=== PATIENT | female | born 1990 | race Asian ===

== ENCOUNTER 2018-06-03 15:47 | Emergency (ER) | payer OTHER ==
[2018-06-03] MEDS ORDERED: DIPHTH,PERTUSS(ACELL),TET 0.5 ML DISP.SYRIN IM ONE (15:50)
--- NOTE | 2018-06-03 15:50 | PDOC ---
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
[2018-06-03 15:51] VITALS: BP 136/71; PULSE 92; TEMP 98.1; BMI 40.2
--- NOTE | 2018-06-03 16:13 | PDOC ---
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 Past History - Past Medical History Allergies/Adverse Reactions: Allergies Allergy/AdvReac Type Severity Reaction Status Date / Time No Known Allergies Allergy Verified 06/03/18 15:51 Home Medications: Ambulatory Orders NK [No Known Home Medication] 07/01/15 COPD: No Thyroid Disease: Yes - Suicide/Smoking/Psychosocial Hx Smoking History: Never smoked Information on smoking cessation initiated: No Hx Alcohol Use: No Drug/Substance Use Hx: No Substance Use Type: None Review of Systems - Review of Systems Integumentary: Yes: See HPI *Physical Exam - Vital Signs Last Vital Signs Temp Pulse Resp BP Pulse Ox 98.1 F 92 H 18 136/71 100 06/03/18 15:49 06/03/18 15:49 06/03/18 15:49 06/03/18 15:49 06/03/18 15:49 - Physical Exam Comments: 06/03/18 16:11 There is a subcentimeter superficial laceration on the ulnar aspect of the right hand about the hyperthenar eminence this wound does not require sutures. There are no gross sensorimotor deficits in the hand flexor and extended tendon functions are all well preserved neurovascularly intact Medical Decision Making - Medical Decision Making 06/03/18 16:12 Recommend local wound care with soap and water cover with a dry sterile dressing May leave open to air while at home *DC/Admit/Observation/Transfer Diagnosis at time of Disposition: Hand laceration - Discharge Dispostion Disposition: HOME Condition at time of disposition: Stable Decision to Admit order: No - Referrals Referrals: Judy Burrell MD [Primary Care Provider] - Porter Pederson MD [Staff Physician] - - Patient Instructions Additional Instructions: He may wash the hand with soap and water and cover it with a dry sterile dressing such as a Band-Aid. Return to the emergency room should there be any drainage swelling or redness around the area of the wound. Tetanus was updated today. He had the option to follow-up with hand surgery should you feel you require further treatment. You may also return to the emergency room at any time - Post Discharge Activity
== END 2018-06-03 16:17 | disposition home or self-care (01) ==
LOC: JERFT 15:47
PROC: 3E0234Z Introduction of Serum, Toxoid and Vaccine into Muscle, Percutaneous Approach (ICD-10-PCS; principal; 2018-06-03)
DX: S61.411A Laceration without foreign body of right hand, initial encounter (principal); W26.0XXA Contact with knife, initial encounter; Y93.G1 Activity, food preparation and clean up; Y92.89 Other specified places as the place of occurrence of the external cause; Y99.0 Civilian activity done for income or pay; E07.9 Disorder of thyroid, unspecified
CPT/HCPCS: 90715; 99282-25

== ENCOUNTER 2018-06-19 13:18 | Emergency (ER) | payer OTHER ==
[2018-06-19 13:33] VITALS: BP 139/79; PULSE 88; TEMP 98.3; BMI 40.3
[2018-06-19] MEDS ORDERED: KETOROLAC TROMETHAMINE 60 MG/2 ML VIAL IM ONE (14:03)
[2018-06-19] MEDS ORDERED: CYCLOBENZAPRINE HCL 10 MG TABLET (FP) PO ONE (14:03)
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
[2018-06-19] MEDS ORDERED: CYCLOBENZAPRINE HCL 10 MG TABLET (FP) ONE (14:12)
[2018-06-19] MEDS ORDERED: KETOROLAC TROMETHAMINE 60 MG/2 ML VIAL ONE (14:12)
== END 2018-06-19 15:57 | disposition home or self-care (01) ==
LOC: JERFT 13:18
PROC: 3E0233Z Introduction of Anti-inflammatory into Muscle, Percutaneous Approach (ICD-10-PCS; principal; 2018-06-19)
DX: S16.1XXA Strain of muscle, fascia and tendon at neck level, initial encounter (principal); V43.52XA Car driver injured in collision with other type car in traffic accident, initial encounter; Y93.89 Activity, other specified; Y92.410 Unspecified street and highway as the place of occurrence of the external cause; E07.9 Disorder of thyroid, unspecified
CPT/HCPCS: 72050-TC-FY; 84703; 99281-25

== ENCOUNTER 2019-02-21 11:09 | Emergency (ER) | payer OTHER ==
[2019-02-21 11:19] VITALS: BP 114/74; PULSE 74; TEMP 98.2; BMI 40.0
--- NOTE | 2019-02-21 11:27 | PDOC ---
History of Present Illness - General Chief Complaint: Eye Problem Stated Complaint: LT EYE PAIN Time Seen by Provider: 02/21/19 11:20 History Source: Patient Exam Limitations: Clinical Condition - History of Present Illness Initial Comments: 02/21/19 11:43 Patient with no significant past medical history present with complaint of redness and pain in left eye upon wake this morning. Patient report some mild blurred vision upon wake. Patient wears corrective lenses. Denies contact lens use. Denies nausea, vomiting, dizziness but report mild photophobia. Denies any other symptoms Timing/Duration: 4-6 hours Past History - Past Medical History Allergies/Adverse Reactions: Allergies Allergy/AdvReac Type Severity Reaction Status Date / Time No Known Allergies Allergy Verified 02/21/19 11:19 Home Medications: Ambulatory Orders Ofloxacin 0.3% Ophth Soln [Ocuflox -] 2 drop OS Q6H 5 Days #1 bottle 02/21/19 COPD: No Thyroid Disease: Yes - Suicide/Smoking/Psychosocial Hx Smoking History: Never smoked Hx Alcohol Use: No Drug/Substance Use Hx: No Substance Use Type: None Review of Systems - Review of Systems Able to Perform ROS?: Yes Is the patient limited Vietnamese proficient: No Constitutional: No: Chills, Fever, Malaise HEENTM: Yes: Symptoms Reported, See HPI, Eye Pain (left eye). No: Blurred Vision, Tearing, Recent change in vision, Double Vision, Cataracts, Ear Pain, Ocular Prothesis, Ear Discharge, Nose Pain, Nose Congestion, Tinnitus, Nose Bleeding, Hearing Loss, Throat Pain, Throat Swelling, Mouth Pain, Dental Problems, Difficulty Swallowing, Mouth Swelling, Other Respiratory: No: Symptoms reported, See HPI, Cough, Orthopnea, Shortness of Breath, SOB with Exertion, SOB at Rest, Stridor, Wheezing, Productive cough, Hemoptysis, Other Cardiac (ROS): No: Symptoms Reported, See HPI, Chest Pain, Edema, Irregular Heart Rate, Lightheadedness, Palpitations, Syncope, Chest Tightness, Other ABD/GI: No: Nausea, Vomiting Musculoskeletal: No: Symptoms Reported Integumentary: No: Symptoms Reported Neurological: No: Symptoms reported, Headache, Dizziness All Other Systems: Reviewed and Negative *Physical Exam - Vital Signs Last Vital Signs Temp Pulse Resp BP Pulse Ox 98.2 F 74 18 114/74 100 02/21/19 11:16 02/21/19 11:16 02/21/19 11:16 02/21/19 11:16 02/21/19 11:16 - Physical Exam Comments: 02/21/19 11:26 GENERAL: Well developed, well nourished. Awake and alert. No acute distress. HEENT: mildly injected left conjunctiva. Normal visual acuity exam wearing corrective glasses. Extraocular muscle intact. Pupil equal and refracted to light bilateral.Normocephalic, atraumatic. Sclera are non-icteric. Moist mucous membranes. Oropharynx is clear. NECK: Supple. Full ROM. CARDIOVASCULAR: Regular rate and rhythm. No murmurs, rubs, or gallops. PULMONARY: No evidence of respiratory distress. Lungs clear to auscultation bilaterally. No wheezing, rales or rhonchi. MUSCULOSKELETAL Normal range of motion at all joints. SKIN: Warm and dry. Normal capillary refill. NEUROLOGICAL: Alert, awake, appropriate. Gait is normal without ataxia. PSYCHIATRIC: Cooperative. Good eye contact. Appropriate mood General Appearance: Yes: Nourished, Appropriately Dressed. No: Apparent Distress Medical Decision Making - Medical Decision Making 02/21/19 11:44 Patient with no significant past medical history present with complaint of redness and pain in left eye upon wake this morning. Patient report some mild blurred vision upon wake. Patient wears corrective lenses. Denies contact lens use. Denies nausea, vomiting, dizziness but report mild photophobia. Denies any other symptoms Exam significant for mildly injected left conjunctiva. Normal visual acuity exam wearing corrective glasses. Extraocular muscle intact. Pupil equal and refracted to light bilateral. Symptoms likely conjunctivitis. Patient be discharged home on ofloxacin eyedrops with ophthalmology follow-up. *DC/Admit/Observation/Transfer Diagnosis at time of Disposition: Conjunctivitis Qualifiers: Conjunctivitis type: acute Acute conjunctivitis type: unspecified Laterality: left Qualified Code(s): H10.32 - Unspecified acute conjunctivitis, left eye - Discharge Dispostion Disposition: HOME Condition at time of disposition: Stable Decision to Admit order: No - Prescriptions Prescriptions: Ofloxacin 0.3% Ophth Soln [Ocuflox -] 2 drop OS Q6H 5 Days #1 bottle - Referrals Referrals: Aníbal Wilson MD [Staff Physician] - - Patient Instructions Printed Discharge Instructions: Conjunctivitis, DI for Conjunctivitis Additional Instructions: Use eyedrops as prescribed. Follow-up referred ophthalmology if no improvement in 3 days - Post Discharge Activity Forms/Work/School Notes: Back to Work
== END 2019-02-21 11:43 | disposition home or self-care (01) ==
LOC: JERFT 11:09
DX: H10.32 Unspecified acute conjunctivitis, left eye (principal)
CPT/HCPCS: 99281-25